=== PATIENT | male | born 1960 | race Caucasian/White ===

== ENCOUNTER 2017-05-11 10:26 | Emergency (ER) | payer OTHER ==
[2017-05-11 10:47] VITALS: BP 141/98; PULSE 80; TEMP 97.8; BMI 24.4
--- NOTE | 2017-05-11 10:52 | PDOC ---
History of Present Illness - General Chief Complaint: Injury Stated Complaint: HIT HEAD YESTERDAY,HEAD ACHE Time Seen by Provider: 05/11/17 10:31 History Source: Patient Exam Limitations: No Limitations - History of Present Illness Initial Comments: 57 yo M history CAD s/p stent (on ASA) presents s/p head injury. 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 He states that he turned his head to look at someone and hit the top of his head on the heating unit on the right side. He did not lose consciousness. He did not seek evaluation at the time, but states that this morning he has had a bad headache, shakes in his head and hands, and nausea. He also notes that his vision feels sluggish, so when he turns his head, his eyes lag behind. He has been taking aspirin for the pain without relief, then took 2 regular strength tylenol at 7am. No weakness, numbness, neck stiffness, vomiting. Past History - Past Medical History Allergies/Adverse Reactions: Allergies Allergy/AdvReac Type Severity Reaction Status Date / Time No Known Allergies Allergy Verified 05/11/17 10:28 Home Medications: Ambulatory Orders Aspirin [ASA -] 81 mg PO DAILY 08/20/15 Cholecalciferol (Vitamin D3) [Vitamin D3 -] 400 unit PO DAILY 05/11/17 [place]-3 Fatty Acids/Fish Oil [Fish Oil 1,000 mg Capsule] 1 each PO DAILY Vitamin B Complex 1 each PO DAILY 05/11/17 Cardiac Disorders: Yes (CAD) COPD: No - Surgical History Abdominal Surgery: Yes Cardiac Surgery: Yes (ANGIOPLASTY) Cholecystectomy: Yes - Immunization History Immunization Up to Date: Yes - Suicide/Smoking/Psychosocial Hx Smoking History: Current every day smoker Have you smoked in the past 12 months: Yes Number of Cigarettes Smoked Daily: 10 Information on smoking cessation initiated: Yes 'Breaking Loose' booklet given: 05/11/17 Hx Alcohol Use: No Drug/Substance Use Hx: No Substance Use Type: None Review of Systems - Review of Systems Able to Perform ROS?: Yes Comments:: GENERAL/CONSTITUTIONAL: No fever or chills. No weakness. HEAD, EYES, EARS, NOSE AND THROAT: No change in vision. No ear pain or discharge. No sore throat. CARDIOVASCULAR: No chest pain or shortness of breath. RESPIRATORY: No cough, wheezing, or hemoptysis. GASTROINTESTINAL: No nausea, vomiting, diarrhea or constipation. GENITOURINARY: No dysuria, frequency, or change in urination. MUSCULOSKELETAL: No joint or muscle swelling or pain. No neck or back pain. SKIN: No rash NEUROLOGIC: +Headache. No vertigo, loss of consciousness, or change in strength/ sensation. ENDOCRINE: No increased thirst. No abnormal weight change. HEMATOLOGIC/LYMPHATIC: No anemia, easy bleeding, or history of blood clots. ALLERGIC/IMMUNOLOGIC: No hives or skin allergy. *Physical Exam - Vital Signs Last Vital Signs Temp Pulse Resp BP Pulse Ox 97.8 F 80 20 141/98 100 05/11/17 10:27 05/11/17 10:27 05/11/17 10:27 05/11/17 10:05/11/17 10:27 - Physical Exam Comments: GENERAL: Awake, alert, and fully oriented, in no acute distress HEAD: R parietal scalp laceration. EYES: PERRLA, EOMI, sclera anicteric, conjunctiva clear ENT: Auricles normal inspection, hearing grossly normal, nares patent, oropharynx clear without exudates. Moist mucosa NECK: Normal ROM, supple, no lymphadenopathy, JVD, or masses LUNGS: Breath sounds equal, clear to auscultation bilaterally. No wheezes, and no crackles HEART: Regular rate and rhythm, normal S1 and S2, no murmurs, rubs or gallops ABDOMEN: Soft, nontender, normoactive bowel sounds. No guarding, no rebound. No masses EXTREMITIES: Normal range of motion, no edema. No clubbing or cyanosis. No cords, erythema, or tenderness. +Fine tremors to the L hand. NEUROLOGICAL: Cranial nerves II through XII grossly intact. Normal speech, normal gait. Motor and sensation intact. SKIN: Warm, Dry, normal turgor, no rashes or lesions noted. Medical Decision Making - Medical Decision Making 05/11/17 11:59 CT results d/w patient. Symptoms likely due to concussion. Recommended decreasing screen and TV time, tylenol for pain. Off work for the next few days. F/u with PMD. Stable for DC. *DC/Admit/Observation/Transfer Diagnosis at time of Disposition: Concussion Qualifiers: Encounter type: initial encounter Loss of consciousness presence/duration: without LOC Qualified Code(s): S06.0X0A - Concussion without loss of consciousness, initial encounter - Discharge Dispostion Disposition: HOME Condition at time of disposition: Stable Admit: No - Referrals - Patient Instructions Printed Discharge Instructions: DI for Concussion Additional Instructions: Follow up with Dr. Morgan in 2-3 days. - Post Discharge Activity Forms/Work/School Notes: Back to Work
[2017-05-11] MEDS ORDERED: ACETAMINOPHEN 325 MG TABLET (FP) PO ONE (11:03)
[2017-05-11] MEDS ORDERED: ACETAMINOPHEN 325 MG TABLET (FP) ONE (11:05)
== END 2017-05-11 12:00 | disposition home or self-care (01) ==
LOC: FER 10:26
DX: S06.0X0A Concussion without loss of consciousness, initial encounter (principal); X58.XXXA Exposure to other specified factors, initial encounter; Y93.89 Activity, other specified; Y92.9 Unspecified place or not applicable; I25.10 Atherosclerotic heart disease of native coronary artery without angina pectoris; F17.210 Nicotine dependence, cigarettes, uncomplicated
CPT/HCPCS: 70450-TC; 99282-25

== ENCOUNTER 2018-04-05 16:59 | Emergency (ER) | payer OTHER ==
[2018-04-05 17:14] VITALS: BP 141/82; PULSE 80; TEMP 97.8; BMI 24.4
--- NOTE | 2018-04-05 17:25 | PDOC ---
Attending Attestation - Resident Resident Name: Dakotah Contreras - ED Attending Attestation I have performed the following: I have examined & evaluated the patient, The case was reviewed & discussed with the resident, I agree w/resident's findings & plan, Exceptions are as noted - HPI HPI: 04/05/18 18:58 57y M pmhx of CAD presents with complaint o flaceration. pt was walking his dog when he was dragged by the dog in a direction and his leg struck a fire hydrant. he had some pain there originally but thought nothing of it. When he got home he noticed a lot of bleeding on his R leung, so came for evaluation. denies any numbness/tingling pt on ASA. no other injuries last tetanus in On exam: Lecm flap on R anterior leung (6cm - 5cm component) w/o active bleeding, sensation intact laceration irrigated throughly laceration closed with 14 simple interupted sitches 4.0 nylon and dressed with bacitrcin and gauze willhave pt return in 14 days for suture removal signs of infection and return precautions were dsicussed wit the patient.
--- NOTE | 2018-04-05 19:05 | PDOC ---
History of Present Illness - General Chief Complaint: Pain Stated Complaint: LARGE LACERATION LEFT LOWER LEG Time Seen by Provider: 04/05/18 17:14 History Source: Patient Exam Limitations: No Limitations - History of Present Illness Initial Comments: 04/05/18 18:59 The patient is a 57M with a PMH of CAD s/p angioplasty who presents to the ER after sustaining a laceration. The patient states that he was walking his dog and hit a fire hydrant. When he went home, he noted bleeding on his jeans. He then took his jeans off and noted a L shaped cut on his L anterior leg. He states that his last tetanus was in May. He denies any numbness, tingling, or weakness. Past History - Past Medical History Allergies/Adverse Reactions: Allergies Allergy/AdvReac Type Severity Reaction Status Date / Time No Known Allergies Allergy Verified 04/05/18 17:03 Home Medications: Ambulatory Orders Aspirin [ASA -] 81 mg PO DAILY 08/20/15 Cholecalciferol (Vitamin D3) [Vitamin D3 -] 1,000 unit PO DAILY 05/11/17 [place]-3 Fatty Acids/Fish Oil [Fish Oil 1,000 mg Capsule] 1 each PO DAILY Vitamin B Complex 1 each PO DAILY 05/11/17 Cardiac Disorders: Yes (CAD) COPD: No - Surgical History Abdominal Surgery: Yes Cardiac Surgery: Yes (ANGIOPLASTY) Cholecystectomy: Yes - Immunization History Immunization Up to Date: No - Suicide/Smoking/Psychosocial Hx Smoking History: Current every day smoker Have you smoked in the past 12 months: Yes Number of Cigarettes Smoked Daily: 10 Information on smoking cessation initiated: Yes 'Breaking Loose' booklet given: 04/05/18 Hx Alcohol Use: No Drug/Substance Use Hx: Yes (MARIJUANA) Substance Use Type: Marijuana Review of Systems - Review of Systems Able to Perform ROS?: Yes Is the patient limited Hungarian proficient: No Constitutional: No: Chills, Fever Integumentary: Yes: Other (Laceration) Neurological: No: Numbness, Tingling, Weakness *Physical Exam - Vital Signs Last Vital Signs Temp Pulse Resp BP Pulse Ox 97.8 F 80 18 141/82 100 04/05/18 17:02 04/05/18 17:02 04/05/18 17:02 04/05/18 17:02 04/05/18 17:02 - Physical Exam General Appearance: Yes: Nourished, Appropriately Dressed. No: Apparent Distress HEENT: positive: Normal Voice, Hearing Grossly Normal Vascular Pulses: Dorsalis-Pedis (R): 2+, Doralis-Pedis (L): 2+ Musculoskeletal: positive: Normal Inspection Extremity: positive: Other (5cm linear laceration with 6cm linear laceration in L shape pattern) Integumentary: positive: Dry, Warm. negative: Bruising Neurologic: positive: Fully Oriented, Alert, Normal Mood/Affect, Motor Strength 5/5 Moderate Sedation - Procedure Monitoring Vital Signs: Procedure Monitoring Vital Signs Temperature 97.8 F 04/05/18 17:02 Pulse Rate 80 04/05/18 17:02 Respiratory Rate 18 04/05/18 17:02 Blood Pressure 141/82 04/05/18 17:02 O2 Sat by Pulse Oximetry (%) 100 04/05/18 17:02 Procedures - Laceration/Wound Repair Left Lower Leg Wound Length: 5.0 to 7.5 cm Wound Explored: clean Wound's Depth, Shape: superficial Irrigated w/ Saline: Yes Betadine Prep: No Anesthesia: 1% Lidocaine Amount of Anesthetic (ccs): 4 Wound Debrided: minimal Wound Repaired With: Sutures Suture Size/Type: 3:0 Number of Sutures: 14 Layer Closure: No Sterile Dressing Applied: Yes Splint Applied: No Sling Applied: No Medical Decision Making - Medical Decision Making 04/05/18 19:02 The patient is a 57M with a PMH of CAD on baby asa who presents with a L shaped linear laceration. 14 sutures were placed in a sterile fashion, 6-0 nylon sutures. Pt was numbed and saline irrigation was used. Pt given strict d/c instructions and reasons to f/u. Pt agrees and is ready for d/c. *DC/Admit/Observation/Transfer Diagnosis at time of Disposition: Laceration - Discharge Dispostion Disposition: HOME Condition at time of disposition: Stable Decision to Admit order: No - Referrals - Patient Instructions Printed Discharge Instructions: DI for Laceration Repair, DI for Suture Removal Additional Instructions: Please follow up with your primary care doctor or come to the ER in 10-14 days for suture removal. Please return to the ER if you develop redness, pain, drainage, or irritation of the site. Keep it clean and dry for 48 hours. Take baths and gently clean the area with soap and water. Place bacitracin on the area and cover it with gauze. Please return with any worsening or concerning symptoms. - Post Discharge Activity
== END 2018-04-05 19:17 | disposition home or self-care (01) ==
LOC: FER 16:59
PROC: 0HQLXZZ Repair Left Lower Leg Skin, External Approach (ICD-10-PCS; principal; 2018-04-05)
DX: S81.812A Laceration without foreign body, left lower leg, initial encounter (principal); W22.09XA Striking against other stationary object, initial encounter; Y93.K1 Activity, walking an animal; Y92.410 Unspecified street and highway as the place of occurrence of the external cause; F17.210 Nicotine dependence, cigarettes, uncomplicated; I25.10 Atherosclerotic heart disease of native coronary artery without angina pectoris
CPT/HCPCS: 99282-25

== ENCOUNTER 2019-06-13 12:14 | Emergency (ER) | payer OTHER ==
[2019-06-13 12:32] VITALS: BP 122/73; PULSE 84; TEMP 98.7; BMI 22.4
[2019-06-13] MEDS ORDERED: LIDOCAINE 5% TOPICAL PATCH TP ONE (13:18)
[2019-06-13] MEDS ORDERED: IBUPROFEN 600 MG TABLET (FP) PO ONE ×2 (13:20→13:27)
[2019-06-13] MEDS ORDERED: LIDOCAINE 5% TOPICAL PATCH ONE (13:28)
--- NOTE | 2019-06-13 13:32 | PDOC ---
History of Present Illness - General Chief Complaint: Pain Stated Complaint: RIGHT RIB AND SIDE PAIN SINCE YESTERDAY AT WORK Time Seen by Provider: 06/13/19 12:51 Past History - Past Medical History Allergies/Adverse Reactions: Allergies Allergy/AdvReac Type Severity Reaction Status Date / Time No Known Allergies Allergy Verified 04/05/18 17:03 Home Medications: Ambulatory Orders Aspirin [ASA -] 81 mg PO DAILY 08/20/15 Cholecalciferol (Vitamin D3) [Vitamin D3 -] 1,000 unit PO DAILY 05/11/17 [place]-3 Fatty Acids/Fish Oil [Fish Oil 1,000 mg Capsule] 1 each PO DAILY Vitamin B Complex 1 each PO DAILY 05/11/17 Methocarbamol [Robaxin -] 500 mg PO TID PRN #21 tablet 06/13/19 Cardiac Disorders: Yes (CAD) COPD: No - Surgical History Abdominal Surgery: Yes Cardiac Surgery: Yes (ANGIOPLASTY) Cholecystectomy: Yes - Immunization History Immunization Up to Date: No - Psycho Social/Smoking Cessation Hx Smoking History: Former smoker Have you smoked in the past 12 months: Yes Number of Cigarettes Smoked Daily: 10 If you are a former smoker, when did you quit?: 1 WEEK AGO Information on smoking cessation initiated: No 'Breaking Loose' booklet given: 04/05/18 Hx Alcohol Use: No Drug/Substance Use Hx: No Substance Use Type: Marijuana *Physical Exam - Vital Signs Last Vital Signs Temp Pulse Resp BP Pulse Ox 98.7 F 84 16 122/73 100 06/13/19 12:21 06/13/19 12:21 06/13/19 12:21 06/13/19 12:21 06/13/19 12:21 ED Treatment Course - RADIOLOGY Radiology Studies Ordered: Category Date Time Status CHEST PA & LAT [RAD] Stat Radiology 06/13/19 13:16 Ordered Medical Decision Making - Medical Decision Making 06/13/19 13:29 HPI: 59yo M hx smoking (44 pack-year, quit 1 week ago) and s/p angioplasty (on aspirin, denies HLD/HTN/DM/ACS/TN) presents from home with localized pleuritic pain just inferolateral to R nipple since this AM s/p pulling heavy box yesterday. Pain "annoying" type, nonradiating, worse with cough or deep breath or any movement of torso, better with sitting still, no pain meds tried, no hx similar sx. Denies trauma. Pt was pulling box when felt a "pop" in "muscle" at that location yesterday afternoon. Pt felt fine after and into this AM, but then this AM pt sneezed and pain suddenly returned in same location and has been constant since then. Denies fever, chills, fatigue, headache, dizziness, numbness/tingling, weakness, vision changes, shortness of breath, cough, chest pain, palpitations, leg swelling, abdominal pain, blood in stool, diarrhea, constipation, nausea, vomiting, dysuria, hematuria, hx DVT/PE, recent surgery, trauma, recent travel, recent illness, sick contacts, COLE, syncope, hx ACS/TN, hx pulmonary diseases. ROS: Constitutional: Negative for chills, fever, fatigue, diaphoresis. HENT: Negative for sore throat, rhinorrhea, congestion. Eyes: Negative for visual disturbance. Respiratory: Negative for shortness of breath, cough, and wheezing. Cardiovascular: Negative for chest pain, palpitations, and leg swelling. Gastrointestinal: Negative for abdominal pain, blood in stool, constipation, diarrhea, nausea, and vomiting. Genitourinary: Negative for dysuria, flank pain, and hematuria. Musculoskeletal: Positive for right anterior rib/chest wall pain. Negative for myalgias, back pain, and neck pain. Skin: Negative for rash. Neurological: Negative for light-headedness, dizziness, vertigo, syncope, weakness, numbness and headaches. Psychiatric/Behavioral: Negative for behavioral problems and confusion. PE: Gen: Alert, NAD, comfortable-appearing, sitting upright HEENT: PERRL, EOMI, MMM, NCAT. No conjunctival pallor. Sclera are non-icteric. CV: Regular rate and rhythm. No murmurs, rubs, or gallops. PULM: +R anterior rib point tenderness just inferolateral to nipple. No resp distress. CTAB, no wheezes, rales, or rhonchi. ABD: soft, NT/ND, no rebound tenderness or guarding, no CVA tenderness. BACK: No TTP of c/t/l-spine. No step-offs or deformities. MSK: +R anterior rib point tenderness just inferolateral to nipple. No bony deformities. 2+ pulses in all extremities. NEURO: AAOx3. PERRL. No gross CN deficits. Strength and sensation grossly intact throughout. EXTREMITIES: No cyanosis. No clubbing. No edema. No calf tenderness. PSYCH: Normal mood and thought pattern. SKIN: Warm and dry. Normal capillary refill. No rashes. No jaundice. MDM: 59yo M hx smoking (44 pack-year, quit 1 week ago) and s/p angioplasty (on aspirin, denies HLD/HTN/DM/ACS/TN) presents from home with localized pleuritic pain just inferolateral to R nipple since this AM s/p pulling heavy box yesterday. Hemodynamically stable, afebrile, lungs CTAB, point tenderness R anterior chest wall. Reproducibility, point tenderness, and presentation most consistent with muscular strain. Also consider PTX or rib fracture, though less likely due to lack of SOB, lungs CTAB, and lack of trauma - r/o with CXR. No chest pain, SOB, nausea, diaphoresis, COLE, or hx ACS/TN concerning for ACS/TN, arrhythmia. Lungs CTAB and lack of cough or SOB make pulmonary pathology unlikely. -CXR -Pain management: ibuprofen, lidocaine patch -Dispo: pending CXR, likely d/c home w/pain meds 06/13/19 13:59 CXR reviewed by me and Dr Mendes: no acute pathology Will dc home with PCP f/u and robaxin rx. Return precautions given. Pt understands all dc instructions and all questions were answered. Discharge - Discharge Information Problems reviewed: Yes Clinical Impression/Diagnosis: Muscle strain of anterior chest wall Condition: Stable Disposition: HOME - Admission No - Additional Discharge Information Prescriptions: Methocarbamol [Robaxin -] 500 mg PO TID PRN #21 tablet PRN Reason: Pain - Follow up/Referral - Patient Discharge Instructions Patient Printed Discharge Instructions: DI for Muscle Strain Additional Instructions: You have been seen in the Emergency Department for your chest wall pain. Your chest X-ray shows no signs of rib fracture or lung problem. Your pain is most likely due to a muscle strain. If you experience pain, you can take Tylenol or Ibuprofen as directed on the medication bottle, but do not exceed 3g of Ibuprofen or 4g of Tylenol a day. We have also prescribed you Robaxin (a muscle relaxant) which you can take as prescribed - 500mg three times a day as needed for pain and stiffness. Robaxin can cause drowsiness so do not drive or operate heavy machinery while taking Robaxin. Rest and protect the injured area. Stop, change, or take a break from any activity that may be causing your pain. Do continue with normal activity as much as possible though to prevent stiffness and increased pain. Cold will reduce pain and swelling. Apply an ice or cold pack right away to prevent or minimize swelling. Apply the ice or cold pack for 10 to 20 minutes, 3 or more times a day. After 48 to 72 hours, if swelling is gone, apply heat to the area that hurts. Do not apply ice or heat directly to the skin. Place a towel over the cold or heat pack before applying it to the skin. Return to the ED immediately if you experience worsening pain not controlled by over the counter medications, numbness or tingling, chest pain, difficulty breathing, passing out, or any other new or worsening symptom - Post Discharge Activity Work/Back to School Note: Back to Work
--- NOTE | 2019-06-13 14:03 | PDOC ---
Attending Attestation - Resident Resident Name: AyaanallenKailey - ED Attending Attestation I have performed the following: I have examined & evaluated the patient, The case was reviewed & discussed with the resident, I agree w/resident's findings & plan - HPI HPI: 06/13/19 14:04 59yo M hx smoking (44 pack-year, quit 1 week ago) and s/p angioplasty (on aspirin, denies HLD/HTN/DM/ACS/[place]) presents from home with localized pleuritic pain just inferolateral to R nipple since this AM s/p pulling heavy box yesterday. Pain "annoying" type, nonradiating, worse with cough or deep breath or any movement of torso, better with sitting still, no pain meds tried, no hx similar sx. Denies trauma. Pt was pulling box when felt a "pop" in "muscle" at that location yesterday afternoon. Pt felt fine after and into this AM, but then this AM pt sneezed and pain suddenly returned in same location - Physicial Exam PE: 06/13/19 14:03 Agree with the resident's HPI and PE as documented in the electronic medical record. NAD, well appearing, EOMI, PERRL, nl conjunctiva, anicteric; neck supple. lungs clear, RRR, chest wall with right anterolateral chest wall tenderness. abdomen soft nontender. no rebound, guarding. Back nontender. ZAVALA x4, no focal neuro deficits. No peripheral edema. normal color for ethnicity, WWP. - Medical Decision Making 06/13/19 14:00 Vital Signs Temp Pulse Resp BP Pulse Ox 98.7 F 84 16 122/73 100 06/13/19 12:21 06/13/19 12:21 06/13/19 12:21 06/13/19 12:21 06/13/19 12:21 DDx chest pain: most likely costochondritis. as sx are reproducible, point tenderness at the right sumaya lateral chest wall. no crepitus, no skin discoloration. Considered but clinically doubt based on HPI and PE: Low suspicion for pulmonary embolism or dissection. ACS, arrhythmia, unstable angina, PE, dissection, PUD, esophageal spasm, GERD, gastritis, costochondritis, pneumonia, pleurisy, pericarditis/myocarditis. dehydration, electrolyte/metabolic derangements. Interpreted by ED Physician: CXR (2 view): no acute abnormality: no infiltrates , bones appear intact and structures normal alignment, cardiac silhouette within normal limits. no free air under diaphragm, no pneumothorax. most likely chest wall contusion/costochondritis from use of accessory muscles with sneezing today, prior pulling/muscle strain. analgesia, topical lidoderm muscle relaxant breathing exercises, pain control, work note light activity, adequate rest, adv as tolerated. Pt to be discharged in stable condition. Patient and family made aware of clinical impression, treatment recommendations and disposition plan, return precautions discussed (including but not limited to new or persistent/worsening symptoms, pain, fevers, or signs of infection, chest pain, respiratory distress , inability to tolerate oral intake, dehydration, syncope, or neurologic changes ). Follow up with PMD as recommended, follow up information provided, take medications as instructed for duration of time. continue with supportive care, avoid triggers and precipitants. All questions answered to patient's satisfaction and expressed understanding and comfort with this. At the time of discharge, the patient is alert, clinically improved, tolerating po and verbalizes understanding of instructions, satisfied with the care received and felt comfortable with the plan. Patient does not suffer from an acute life- threatening medical condition at this time and is safe for outpatient follow- up. 06/13/19 17:09
[2019-06-13] MEDS ORDERED: LIDOCAINE PATCH REMOVAL MC SCH (22:00)
== END 2019-06-13 14:24 | disposition home or self-care (01) ==
LOC: FER 12:14
DX: S29.011A Strain of muscle and tendon of front wall of thorax, initial encounter (principal); X58.XXXA Exposure to other specified factors, initial encounter; Y93.89 Activity, other specified; Y92.89 Other specified places as the place of occurrence of the external cause; I25.10 Atherosclerotic heart disease of native coronary artery without angina pectoris; Z87.891 Personal history of nicotine dependence
CPT/HCPCS: 71046-TC-FY; 99283-25